=== PATIENT | female | born 1990 | race Hispanic/Latino ===

== ENCOUNTER 2022-06-29 13:49 | Emergency (ER) | payer OTHER ==
[~2022-06-29] VITALS: Ht 157.5 cm; Wt 63.5 kg
[2022-06-29] MEDS ORDERED: ONDANSETRON ODT4 MG PO (14:42)
[2022-06-29] MEDS ORDERED: MECLIZINE HCL12.5 MG PO (14:42)
[2022-06-29] MEDS ORDERED: ONDANSETRON HCL 4 MG ORAL DISINTEGRATING TAB PO ONE (14:45)
[2022-06-29] MEDS ORDERED: MECLIZINE HCL 12.5 MG TAB PO ONE (14:45)
[2022-06-29] MEDS ORDERED: ONDANSETRON HCL 4 MG ORAL DISINTEGRATING TAB ONE (14:54)
[2022-06-29] MEDS ORDERED: MECLIZINE HCL 12.5 MG TAB ONE (14:54)
== END 2022-06-29 14:57 | disposition home or self-care (01) ==
LOC: ER 14:07
DX: R42 Dizziness and giddiness (principal); H53.8 Other visual disturbances
CPT/HCPCS: 99282; J8597; Q0162